=== PATIENT | male | born 1965 | race Caucasian/White ===

== ENCOUNTER 2016-11-27 05:52 | Inpatient (IN) | payer BC, MEDICAID, OTHER ==
[~2016-11-27] VITALS: Ht 177.8 cm; Wt 88.4 kg
[~2016-11-27 05:52] MED LIST: CITA20TA9 PO; QUET100T PO; QUET200T PO; QUET25TA PO; VITAD1000 PO
[2016-11-27 06:18] LABS: BASOPHILS # (AUTO) 0.08 K/uL (0.00-0.20); BASOPHILS % (AUTO) 0.8 % (0.0-2.0); EOSINOPHILS # (AUTO) 0.19 K/uL (0.00-0.70); EOSINOPHILS % (AUTO) 1.77 % (1.0-6.0); HEMATOCRIT 41.5 % (41-53); HEMOGLOBIN 13.8 g/dL (13.5-17.5); LYMPHOCYTES # (AUTO) 1.8 K/uL (1.0-4.8); LYMPHOCYTES % (AUTO) 16.6 % (22.0-44.0); MEAN CORPUSCULAR HEMOGLOBIN 30.6 pg (26.0-34.0); MEAN CORPUSCULAR HGB CONC 33.4 G/dL (31.0-37.0); MEAN CORPUSCULAR VOLUME 92 fL (80-100); MONOCYTES # (AUTO) 0.7 K/uL (0.1-1.0); MONOCYTES % (AUTO) 6.3 % (2.0-9.0); NEUTROPHILS # (AUTO) 7.9 K/uL (1.8-7.7); NEUTROPHILS % (AUTO) 74.5 % (40.0-70.0); PLATELET COUNT (AUTO) 452 K/uL (150-450); RED BLOOD CELL COUNT(AUTO) 4.52 MIL/uL (4.50-5.90); RED CELL DISTRIBUTION WIDTH 13.6 % (11.5-14.5); WHITE BLOOD COUNT (AUTO) 10.6 K/uL (4.5-11.0)
[2016-11-27 06:39] LABS: ANION GAP 11 mmol/L (8-16); CALCIUM, TOTAL 8.8 mg/dL (8.8-10.5); CARBON DIOXIDE 29 mmol/L (22-29); CHLORIDE 103 mmol/L (98-107); CREATININE 1.03 mg/dL (0.60-1.30); GLOMERULAR FILTR. RATE CALC > 60 mL/min (>60); POTASSIUM 3.5 mmol/L (3.5-5.1); SODIUM SERUM 143 mmol/L (136-145); UREA NITROGEN, BLOOD 10 mg/dL (7-18)
[2016-11-27 06:46] LABS: ALANINE AMINOTRANSFERASE 33 U/L (12-78); ALBUMIN 3.4 g/dL (3.4-5.0); ASPARTATE AMINOTRANSFERASE 25 U/L (15-37); BILIRUBIN,TOTAL 0.2 mg/dL (0.1-1.0)
[2016-11-27] MEDS ORDERED: HALOPERIDOL 5 MG TABLET PO PRN (08:30)
[2016-11-27] MEDS ORDERED: ZOLPIDEM TARTRATE 10 MG TABLET PO PRN (08:30)
[2016-11-27 10:29] VITALS: BP 134/94
[2016-11-27 10:51] VITALS: BP 134/94
[2016-11-27] MEDS: QUEtiapine FUMARATE 100 MG TABLET PO SCH (11:45)
[2016-11-27] MEDS: CITALOPRAM HYDROBROMIDE 20 MG TABLET PO SCH (11:46)
[2016-11-27] MEDS: LORazepam 2 MG TABLET PO PRN ×3 (11:49→20:58)
[2016-11-27 16:41] VITALS: BP 126/70
[2016-11-27] MEDS: QUEtiapine FUMARATE 200 MG TABLET PO SCH (20:58)
[2016-11-28 03:27] VITALS: BP 139/93
[2016-11-28] MEDS: IBUPROFEN 600 MG TABLET PO PRN ×4 (03:33→21:04)
[2016-11-28] MEDS: LORazepam 2 MG TABLET PO PRN ×4 (03:33→16:27)
[2016-11-28] MEDS: QUEtiapine FUMARATE 100 MG TABLET PO SCH (07:53)
[2016-11-28] MEDS: CITALOPRAM HYDROBROMIDE 20 MG TABLET PO SCH (07:53)
[2016-11-28 08:01] VITALS: BP 130/80
[2016-11-28] MEDS: NICOTINE 14 MG/24 HOUR PATCH TD SCH (08:30)
[2016-11-28 16:26] VITALS: BP 144/95
[2016-11-28] MEDS ORDERED: LOPERAMIDE HCL 2 MG CAPSULE PO PRN (16:45)
[2016-11-28] MEDS ORDERED: MAG HYDROX/AL HYDROX/SIMETH ES 30 ML SUSPENSION UDCUP PO PRN (16:45)
[2016-11-28] MEDS ORDERED: ONDANSETRON HCL 4 MG TABLET PO PRN (16:45)
[2016-11-28] MEDS ORDERED: CloNIDine HCL 0.1 MG TABLET PO PRN (16:45)
[2016-11-28] MEDS ORDERED: ALBUTEROL SULFATE HFA 90 MCG/PUFF 8 GM INHALER IH PRN (16:45)
[2016-11-28] MEDS ORDERED: BACITRACIN 28.4 GM OINTMENT TP PRN (16:45)
[2016-11-28] MEDS ORDERED: TraMADol HCL 50 MG TABLET PO PRN (16:45)
[2016-11-28] MEDS ORDERED: MAGNESIUM HYDROXIDE SUSPENSION 30 ML UDCUP PO PRN (16:45)
[2016-11-28] MEDS ORDERED: PETROLATUM,WHITE 71 GM JELLY TP PRN (16:45)
[2016-11-28] MEDS ORDERED: ACETAMINOPHEN 325 MG TABLET PO PRN (16:45)
[2016-11-28] MEDS ORDERED: BENZOCAINE/MENTHOL LOZENGE [8 LOZENGES/PACKET] MM PRN (16:45)
[2016-11-28] MEDS: QUEtiapine FUMARATE 200 MG TABLET PO SCH (21:01)
[2016-11-28 21:04] VITALS: BP 139/78
[2016-11-29] MEDS: LORazepam 2 MG TABLET PO PRN ×3 (03:51→14:03)
[2016-11-29] MEDS: IBUPROFEN 600 MG TABLET PO PRN ×2 (03:51→14:03)
[2016-11-29 03:55] VITALS: BP 134/100
[2016-11-29 06:30] VITALS: BP 145/94
[2016-11-29 09:00] VITALS: BP 151/98
[2016-11-29] MEDS ORDERED: CHOLECALCIFEROL (VIT D3) 1,000 UNITS TABLET PO SCH (09:00)
[2016-11-29] MEDS: CITALOPRAM HYDROBROMIDE 20 MG TABLET PO SCH (09:00)
[2016-11-29] MEDS: QUEtiapine FUMARATE 100 MG TABLET PO SCH (09:00)
[2016-11-29] MEDS ORDERED: OMEPRAZOLE 20 MG CAPSULE PO SCH (09:00)
[2016-11-29] MEDS: NICOTINE 14 MG/24 HOUR PATCH TD SCH (09:05)
[2016-11-29] MEDS ORDERED: OMEP20 PO (10:37)
[2016-11-29 14:00] VITALS: BP 130/78
== END 2016-11-29 16:30 | disposition home or self-care (01) | DRG 750 ==
LOC: EMS 05:52 → 3EI 09:53
PROVIDERS: ADMIT Psychiatry & Neurology Child & Adolescent Psychiatry; ATTEND Psychiatry & Neurology Child & Adolescent Psychiatry
DX: F25.1 Schizoaffective disorder, depressive type (principal); R45.851 Suicidal ideations; E55.9 Vitamin D deficiency, unspecified; I10 Essential (primary) hypertension; J44.9 Chronic obstructive pulmonary disease, unspecified; G89.29 Other chronic pain; M54.9 Dorsalgia, unspecified; M19.90 Unspecified osteoarthritis, unspecified site; G47.00 Insomnia, unspecified; K21.9 Gastro-esophageal reflux disease without esophagitis; F17.210 Nicotine dependence, cigarettes, uncomplicated; F12.90 Cannabis use, unspecified, uncomplicated; Z91.14 Patient's other noncompliance with medication regimen; Z88.8 Allergy status to other drugs, medicaments and biological substances; Z91.018 Allergy to other foods; Z79.899 Other long term (current) drug therapy; Z59.0 Homelessness; Z72.89 Other problems related to lifestyle; Z71.6 Tobacco abuse counseling; Z98.890 Other specified postprocedural states; Z91.5 Personal history of self-harm
CPT/HCPCS: 99285; G0480; J3535; Q0162

== ENCOUNTER 2016-12-23 13:29 | Inpatient (IN) | payer MEDICAID, OTHER ==
[~2016-12-23] VITALS: Ht 175.3 cm; Wt 85.0 kg
[~2016-12-23 13:29] MED LIST changes: +OMEP20 PO; -QUET25TA PO
[2016-12-23 13:56] LABS: BASOPHILS % (AUTO) 0.4 % (0.0-2.0); EOSINOPHILS % (AUTO) 0.1 % (1.0-6.0); HEMATOCRIT 44.4 % (41-53); HEMOGLOBIN 14.7 g/dL (13.5-17.5); LYMPHOCYTES # (AUTO) 1.3 K/uL (1.0-4.8); LYMPHOCYTES % (AUTO) 9.8 % (22.0-44.0); MEAN CORPUSCULAR HEMOGLOBIN 29.8 pg (26.0-34.0); MEAN CORPUSCULAR VOLUME 90 fL (80-100); MONOCYTES # (AUTO) 0.8 K/uL (0.1-1.0); NEUTROPHILS # (AUTO) 10.8 K/uL (1.8-7.7); NEUTROPHILS % (AUTO) 83.7 % (40.0-70.0); PLATELET COUNT (AUTO) 378 K/uL (150-450); RED BLOOD CELL COUNT(AUTO) 4.92 MIL/uL (4.50-5.90); WHITE BLOOD COUNT (AUTO) 12.9 K/uL (4.5-11.0)
[2016-12-23 14:04] LABS: ANION GAP 17 mmol/L (8-16); CALCIUM, TOTAL 8.9 mg/dL (8.8-10.5); CARBON DIOXIDE 22 mmol/L (22-29); CHLORIDE 100 mmol/L (98-107); CREATININE 1.03 mg/dL (0.60-1.30); GLOMERULAR FILTR. RATE CALC > 60 mL/min (>60); POTASSIUM 4.4 mmol/L (3.5-5.1); SODIUM SERUM 139 mmol/L (136-145); UREA NITROGEN, BLOOD 14 mg/dL (7-18)
[2016-12-23 14:10] LABS: ALANINE AMINOTRANSFERASE 57 U/L (12-78); ALBUMIN 4.1 g/dL (3.4-5.0); ASPARTATE AMINOTRANSFERASE 36 U/L (15-37); BILIRUBIN,TOTAL 1.2 mg/dL (0.1-1.0); TOTAL PROTEIN, SERUM 9.1 g/dL (6.4-8.2)
[2016-12-23] MEDS ORDERED: HALOPERIDOL 5 MG TABLET PO PRN ×2 (15:15→17:30)
[2016-12-23 18:18] VITALS: BP 124/89
[2016-12-23] MEDS ORDERED: ACETAMINOPHEN 325 MG TABLET PO PRN (20:00)
[2016-12-23] MEDS: LORazepam 2 MG TABLET PO PRN (20:25)
[2016-12-23 20:30] VITALS: BP 120/84
[2016-12-23] MEDS: TraMADol HCL 50 MG TABLET PO PRN (20:30)
[2016-12-23] MEDS: ZOLPIDEM TARTRATE 10 MG TABLET PO PRN (21:56)
[2016-12-23] MEDS: ALBUTEROL SULFATE HFA 90 MCG/PUFF 8 GM INHALER IH PRN (22:07)
[2016-12-24 01:04] VITALS: BP 107/80
[2016-12-24] MEDS: LORazepam 2 MG TABLET PO PRN ×4 (01:11→17:12)
[2016-12-24] MEDS: IBUPROFEN 600 MG TABLET PO PRN (05:37)
[2016-12-24] MEDS: ALBUTEROL SULFATE HFA 90 MCG/PUFF 8 GM INHALER IH PRN (05:38)
[2016-12-24 08:55] VITALS: BP 110/78
[2016-12-24] MEDS: NICOTINE 21 MG/24 HOUR PATCH TD SCH (09:00)
[2016-12-24] MEDS: OMEPRAZOLE 20 MG CAPSULE PO SCH (09:00)
[2016-12-24] MEDS: CHOLECALCIFEROL (VIT D3) 1,000 UNITS TABLET PO SCH (09:01)
[2016-12-24] MEDS: QUEtiapine FUMARATE 100 MG TABLET PO SCH (11:29)
[2016-12-24] MEDS: CITALOPRAM HYDROBROMIDE 20 MG TABLET PO SCH (11:29)
[2016-12-24 16:18] VITALS: BP 121/79
[2016-12-24] MEDS: TraMADol HCL 50 MG TABLET PO PRN (16:20)
[2016-12-24] MEDS: QUEtiapine FUMARATE 200 MG TABLET PO SCH (20:13)
[2016-12-24] MEDS: ZOLPIDEM TARTRATE 10 MG TABLET PO PRN (20:13)
[2016-12-25] MEDS: TraMADol HCL 50 MG TABLET PO PRN ×2 (00:20→17:13)
[2016-12-25 00:30] VITALS: BP 105/76
[2016-12-25] MEDS: IBUPROFEN 600 MG TABLET PO PRN ×2 (01:29→20:22)
[2016-12-25] MEDS: ALBUTEROL SULFATE HFA 90 MCG/PUFF 8 GM INHALER IH PRN ×2 (02:17→12:13)
[2016-12-25] MEDS: LORazepam 2 MG TABLET PO PRN ×4 (04:33→20:31)
[2016-12-25] MEDS: CHOLECALCIFEROL (VIT D3) 1,000 UNITS TABLET PO SCH (08:06)
[2016-12-25] MEDS: CITALOPRAM HYDROBROMIDE 20 MG TABLET PO SCH (08:06)
[2016-12-25] MEDS: NICOTINE 21 MG/24 HOUR PATCH TD SCH (08:06)
[2016-12-25] MEDS: OMEPRAZOLE 20 MG CAPSULE PO SCH (08:06)
[2016-12-25] MEDS: QUEtiapine FUMARATE 100 MG TABLET PO SCH (08:06)
[2016-12-25 08:37] VITALS: BP 115/93
[2016-12-25 11:08] VITALS: BP 110/74
[2016-12-25 16:09] VITALS: BP 118/82
[2016-12-25 18:15] VITALS: BP 119/78
[2016-12-25] MEDS: QUEtiapine FUMARATE 200 MG TABLET PO SCH (20:21)
[2016-12-25 20:22] VITALS: BP 123/73
[2016-12-25] MEDS: ZOLPIDEM TARTRATE 10 MG TABLET PO PRN (21:34)
[2016-12-26 01:57] VITALS: BP 120/83
[2016-12-26] MEDS: TraMADol HCL 50 MG TABLET PO PRN ×3 (01:57→16:06)
[2016-12-26] MEDS: CITALOPRAM HYDROBROMIDE 20 MG TABLET PO SCH (03:15)
[2016-12-26 04:31] VITALS: BP 104/74
[2016-12-26] MEDS: LORazepam 2 MG TABLET PO PRN ×4 (04:34→18:04)
[2016-12-26] MEDS: ALBUTEROL SULFATE HFA 90 MCG/PUFF 8 GM INHALER IH PRN ×2 (05:37→12:37)
[2016-12-26] MEDS: IBUPROFEN 600 MG TABLET PO PRN ×2 (05:59→12:41)
[2016-12-26 08:19] VITALS: BP 109/73
[2016-12-26] MEDS: CHOLECALCIFEROL (VIT D3) 1,000 UNITS TABLET PO SCH (08:52)
[2016-12-26] MEDS: NICOTINE 21 MG/24 HOUR PATCH TD SCH (08:52)
[2016-12-26] MEDS: QUEtiapine FUMARATE 100 MG TABLET PO SCH (08:53)
[2016-12-26] MEDS: OMEPRAZOLE 20 MG CAPSULE PO SCH (08:53)
[2016-12-26 16:03] VITALS: BP 133/89
[2016-12-26 16:04] VITALS: BP 133/89
[2016-12-26] MEDS: QUEtiapine FUMARATE 200 MG TABLET PO SCH (20:00)
[2016-12-26] MEDS: ZOLPIDEM TARTRATE 10 MG TABLET PO PRN (20:00)
[2016-12-27 00:29] VITALS: BP 136/86
[2016-12-27] MEDS: TraMADol HCL 50 MG TABLET PO PRN ×2 (00:38→10:03)
[2016-12-27] MEDS: LORazepam 2 MG TABLET PO PRN ×2 (05:41→10:55)
[2016-12-27] MEDS: IBUPROFEN 600 MG TABLET PO PRN (06:59)
[2016-12-27 08:19] VITALS: BP 106/60
[2016-12-27] MEDS: OMEPRAZOLE 20 MG CAPSULE PO SCH (08:25)
[2016-12-27] MEDS: CHOLECALCIFEROL (VIT D3) 1,000 UNITS TABLET PO SCH (08:25)
[2016-12-27] MEDS: CITALOPRAM HYDROBROMIDE 20 MG TABLET PO SCH (08:25)
[2016-12-27] MEDS: QUEtiapine FUMARATE 100 MG TABLET PO SCH (08:25)
[2016-12-27] MEDS: NICOTINE 21 MG/24 HOUR PATCH TD SCH (08:25)
[2016-12-27] MEDS: ALBUTEROL SULFATE HFA 90 MCG/PUFF 8 GM INHALER IH PRN (09:30)
[2016-12-27] MEDS ORDERED: LOPERAMIDE HCL 2 MG CAPSULE PO PRN (10:15)
== END 2016-12-27 13:35 | disposition home or self-care (01) | DRG 750 ==
LOC: EMS 13:31 → EEVIPCON 13:31 → B2S 17:09 → EMS 17:19 → B2S 18:00
PROVIDERS: ATTEND Psychiatry & Neurology Child & Adolescent Psychiatry
DX: F25.1 Schizoaffective disorder, depressive type (principal); R45.851 Suicidal ideations; E55.9 Vitamin D deficiency, unspecified; J44.9 Chronic obstructive pulmonary disease, unspecified; K21.9 Gastro-esophageal reflux disease without esophagitis; F31.9 Bipolar disorder, unspecified; M54.5 Low back pain; G47.00 Insomnia, unspecified; F17.210 Nicotine dependence, cigarettes, uncomplicated; F12.90 Cannabis use, unspecified, uncomplicated; F10.10 Alcohol abuse, uncomplicated; Z71.51 Drug abuse counseling and surveillance of drug abuser; Z88.8 Allergy status to other drugs, medicaments and biological substances; Z79.899 Other long term (current) drug therapy; Z59.0 Homelessness; Z71.41 Alcohol abuse counseling and surveillance of alcoholic; Z91.14 Patient's other noncompliance with medication regimen
CPT/HCPCS: 99285; G0480; J3535

== ENCOUNTER 2017-01-31 19:53 | Inpatient (IN) | payer MEDICAID, OTHER ==
[~2017-01-31] VITALS: Ht 177.8 cm; Wt 87.5 kg
[2017-01-31] MEDS ORDERED: HYDR-309 PO (20:08)
[2017-01-31] MEDS ORDERED: DIVA250T25 PO (20:08)
[2017-01-31 20:36] LABS: BASOPHILS % (AUTO) 0.8 % (0.0-2.0); EOSINOPHILS % (AUTO) 2.6 % (1.0-6.0); HEMATOCRIT 44.7 % (41-53); HEMOGLOBIN 14.8 g/dL (13.5-17.5); LYMPHOCYTES # (AUTO) 1.9 K/uL (1.0-4.8); LYMPHOCYTES % (AUTO) 25.4 % (22.0-44.0); MEAN CORPUSCULAR HEMOGLOBIN 30.2 pg (26.0-34.0); MEAN CORPUSCULAR HGB CONC 33.1 G/dL (31.0-37.0); MEAN CORPUSCULAR VOLUME 91 fL (80-100); MONOCYTES # (AUTO) 0.6 K/uL (0.1-1.0); MONOCYTES % (AUTO) 8.8 % (2.0-9.0); NEUTROPHILS # (AUTO) 4.6 K/uL (1.8-7.7); NEUTROPHILS % (AUTO) 62.4 % (40.0-70.0); PLATELET COUNT (AUTO) 318 K/uL (150-450); RED BLOOD CELL COUNT(AUTO) 4.91 MIL/uL (4.50-5.90); RED CELL DISTRIBUTION WIDTH 14.9 % (11.5-14.5); WHITE BLOOD COUNT (AUTO) 7.4 K/uL (4.5-11.0)
[2017-01-31 20:58] LABS: ANION GAP 12 mmol/L (8-16); CALCIUM, TOTAL 9.2 mg/dL (8.8-10.5); CARBON DIOXIDE 27 mmol/L (22-29); CHLORIDE 98 mmol/L (98-107); CREATININE 1.04 mg/dL (0.60-1.30); GLOMERULAR FILTR. RATE CALC > 60 mL/min (>60); POTASSIUM 3.9 mmol/L (3.5-5.1); SODIUM SERUM 137 mmol/L (136-145); UREA NITROGEN, BLOOD 17 mg/dL (7-18)
[2017-01-31 21:04] LABS: ALANINE AMINOTRANSFERASE 29 U/L (12-78); ASPARTATE AMINOTRANSFERASE 28 U/L (15-37); BILIRUBIN,TOTAL 0.9 mg/dL (0.1-1.0); TOTAL PROTEIN, SERUM 8.7 g/dL (6.4-8.2)
[2017-01-31 21:17] LABS: VALPROIC ACID < 3 mcg/mL (50-100)
[2017-02-01] MEDS: LORazepam 2 MG TABLET PO PRN ×3 (00:19→17:08)
[2017-02-01 01:16] VITALS: BP 127/60
[2017-02-01 02:37] LABS: APPEARANCE,URINE TURBID (CLEAR); GLUCOSE, URINE (UA) NEGATIVE (NEGATIVE); KETONES,URINE >=80 mg/dL (NEGATIVE); LEUKOCYTE ESTERASE ,URINE TRACE (NEGATIVE); OCCULT BLOOD,URINE NEGATIVE (NEGATIVE); PROTEIN,URINE POS 1+ (NEGATIVE)
[2017-02-01 02:41] LABS: ADD UA MICROSCOPIC YES
[2017-02-01 02:49] LABS: CALCIUM OXALATE CRYSTALS,UR Moderate /LPF (None Seen); SQUAMOUS EPITHELIAL CELL,UR Few /LPF (None Seen)
[2017-02-01 02:51] LABS: WBC,URINE 0-2 /HPF (0-5)
[2017-02-01 02:52] LABS: RBC,URINE 0-2 /HPF (0-2)
[2017-02-01] MEDS ORDERED: -PHARMACY VACCINE NOTE- MISC ONE ×2 (04:15)
[2017-02-01 09:56] VITALS: BP 116/80
[2017-02-01] MEDS: QUEtiapine FUMARATE 100 MG TABLET PO PRN ×2 (12:22→17:08)
[2017-02-01 16:00] VITALS: BP 107/74
[2017-02-01] MEDS: QUEtiapine FUMARATE 200 MG TABLET PO SCH (21:10)
[2017-02-01] MEDS ORDERED: BENZOCAINE/MENTHOL LOZENGE [8 LOZENGES/PACKET] MM PRN (21:15)
[2017-02-01] MEDS ORDERED: ONDANSETRON HCL 4 MG TABLET PO PRN (21:15)
[2017-02-01] MEDS ORDERED: PETROLATUM,WHITE 71 GM JELLY TP PRN (21:15)
[2017-02-01] MEDS ORDERED: LOPERAMIDE HCL 2 MG CAPSULE PO PRN (21:15)
[2017-02-01] MEDS ORDERED: BACITRACIN 28.4 GM OINTMENT TP PRN (21:15)
[2017-02-01] MEDS ORDERED: CloNIDine HCL 0.1 MG TABLET PO PRN (21:15)
[2017-02-01] MEDS ORDERED: MAGNESIUM HYDROXIDE SUSPENSION 30 ML UDCUP PO PRN (21:15)
[2017-02-01] MEDS ORDERED: MAG HYDROX/AL HYDROX/SIMETH ES 30 ML SUSPENSION UDCUP PO PRN (21:15)
[2017-02-02 08:20] VITALS: BP 137/80
[2017-02-02] MEDS: DOCUSATE SODIUM 100 MG CAPSULE PO SCH (08:21)
[2017-02-02] MEDS: NICOTINE 21 MG/24 HOUR PATCH TD SCH (08:21)
[2017-02-02] MEDS: IBUPROFEN 600 MG TABLET PO PRN ×2 (08:21→16:37)
[2017-02-02] MEDS: LORazepam 2 MG TABLET PO PRN ×3 (08:21→21:04)
[2017-02-02] MEDS: OMEPRAZOLE 20 MG CAPSULE PO SCH (08:21)
[2017-02-02] MEDS: FLUoxetine HCL 20 MG CAPSULE PO SCH (08:21)
[2017-02-02] MEDS: QUEtiapine FUMARATE 200 MG TABLET PO SCH ×2 (08:25→20:21)
[2017-02-02 09:25] VITALS: BP 128/79
[2017-02-02 16:33] VITALS: BP 140/79
[2017-02-03 01:10] VITALS: BP 116/80
[2017-02-03] MEDS: IBUPROFEN 600 MG TABLET PO PRN ×3 (01:12→16:50)
[2017-02-03] MEDS: LORazepam 2 MG TABLET PO PRN ×4 (01:12→16:50)
[2017-02-03] MEDS: ACETAMINOPHEN 325 MG TABLET PO PRN ×2 (04:56→12:24)
[2017-02-03 07:45] LABS: HEMATOCRIT 41.8 % (41-53); HEMOGLOBIN 13.6 g/dL (13.5-17.5); MEAN CORPUSCULAR HEMOGLOBIN 29.9 pg (26.0-34.0); MEAN CORPUSCULAR HGB CONC 32.5 G/dL (31.0-37.0); MEAN CORPUSCULAR VOLUME 92 fL (80-100); PLATELET COUNT (AUTO) 268 K/uL (150-450); RED BLOOD CELL COUNT(AUTO) 4.54 MIL/uL (4.50-5.90); RED CELL DISTRIBUTION WIDTH 14.8 % (11.5-14.5); WHITE BLOOD COUNT (AUTO) 4.5 K/uL (4.5-11.0)
[2017-02-03 08:11] LABS: ALANINE AMINOTRANSFERASE 23 U/L (12-78); ALBUMIN 3.3 g/dL (3.4-5.0); ANION GAP 7 mmol/L (8-16); ASPARTATE AMINOTRANSFERASE 19 U/L (15-37); BILIRUBIN,TOTAL 0.2 mg/dL (0.1-1.0); CALCIUM, TOTAL 8.7 mg/dL (8.8-10.5); CARBON DIOXIDE 28 mmol/L (22-29); CHLORIDE 105 mmol/L (98-107); CHOL/HDL RATIO 3.1 (4.2-7.3); CREATININE 0.97 mg/dL (0.60-1.30); GLOMERULAR FILTR. RATE CALC > 60 mL/min (>60); PHOSPHORUS 3.5 mg/dL (2.5-4.9); POTASSIUM 4.3 mmol/L (3.5-5.1); SODIUM SERUM 140 mmol/L (136-145); THYROID STIMULATING HORMONE 2.17 uIU/mL (0.36-3.74); TOTAL PROTEIN, SERUM 7.6 g/dL (6.4-8.2); UREA NITROGEN, BLOOD 15 mg/dL (7-18)
[2017-02-03 09:15] VITALS: BP 123/85
[2017-02-03] MEDS: DOCUSATE SODIUM 100 MG CAPSULE PO SCH (09:20)
[2017-02-03] MEDS: OMEPRAZOLE 20 MG CAPSULE PO SCH (09:20)
[2017-02-03] MEDS: FLUoxetine HCL 20 MG CAPSULE PO SCH (09:20)
[2017-02-03] MEDS: NICOTINE 21 MG/24 HOUR PATCH TD SCH (09:25)
[2017-02-03] MEDS: QUEtiapine FUMARATE 200 MG TABLET PO SCH ×2 (09:26→21:11)
[2017-02-03 10:04] LABS: BASOPHILS % (AUTO) 0.6 % (0.0-2.0); EOSINOPHILS % (AUTO) 4.6 % (1.0-6.0); LYMPHOCYTES # (AUTO) 1.5 K/uL (1.0-4.8); LYMPHOCYTES % (AUTO) 33.2 % (22.0-44.0); MONOCYTES # (AUTO) 0.5 K/uL (0.1-1.0); MONOCYTES % (AUTO) 11.4 % (2.0-9.0); NEUTROPHILS # (AUTO) 2.3 K/uL (1.8-7.7); NEUTROPHILS % (AUTO) 50.2 % (40.0-70.0)
[2017-02-03] MEDS: CHOLECALCIFEROL (VIT D3) 5,000 UNITS CAPSULE PO SCH (15:06)
[2017-02-03 16:50] VITALS: BP 135/91
[2017-02-04] MEDS: LORazepam 2 MG TABLET PO PRN ×3 (02:38→16:34)
[2017-02-04 02:55] VITALS: BP 114/89
[2017-02-04] MEDS: OMEPRAZOLE 20 MG CAPSULE PO SCH (09:26)
[2017-02-04] MEDS: DOCUSATE SODIUM 100 MG CAPSULE PO SCH (09:26)
[2017-02-04] MEDS: NICOTINE 21 MG/24 HOUR PATCH TD SCH (09:27)
[2017-02-04] MEDS: QUEtiapine FUMARATE 200 MG TABLET PO SCH ×2 (09:27→20:40)
[2017-02-04] MEDS: CHOLECALCIFEROL (VIT D3) 5,000 UNITS CAPSULE PO SCH (09:28)
[2017-02-04] MEDS: FLUoxetine HCL 20 MG CAPSULE PO SCH (09:29)
[2017-02-04 09:30] VITALS: BP 140/99
[2017-02-04] MEDS: IBUPROFEN 600 MG TABLET PO PRN (09:30)
[2017-02-04 10:30] VITALS: BP 134/89
[2017-02-04] MEDS ORDERED: CIPROFLOXACIN HCL 250 MG TABLET PO SCH (17:00)
[2017-02-04 19:01] VITALS: BP 116/82
[2017-02-05 02:20] VITALS: BP 104/86
[2017-02-05] MEDS: IBUPROFEN 600 MG TABLET PO PRN ×3 (02:22→16:40)
[2017-02-05] MEDS: ZOLPIDEM TARTRATE 10 MG TABLET PO PRN (02:22)
[2017-02-05] MEDS ORDERED: FLUoxetine HCL 20 MG CAPSULE PO SCH (09:00)
[2017-02-05 09:30] VITALS: BP 112/77
[2017-02-05] MEDS: DOCUSATE SODIUM 100 MG CAPSULE PO SCH (09:32)
[2017-02-05] MEDS: OMEPRAZOLE 20 MG CAPSULE PO SCH (09:32)
[2017-02-05] MEDS: QUEtiapine FUMARATE 200 MG TABLET PO SCH ×2 (09:32→21:42)
[2017-02-05] MEDS: CHOLECALCIFEROL (VIT D3) 5,000 UNITS CAPSULE PO SCH (09:33)
[2017-02-05] MEDS: LORazepam 2 MG TABLET PO PRN ×2 (09:36→16:40)
[2017-02-05] MEDS: NICOTINE 21 MG/24 HOUR PATCH TD SCH (09:38)
[2017-02-05 16:40] VITALS: BP 131/84
[2017-02-06 05:05] VITALS: BP 100/73
[2017-02-06] MEDS: IBUPROFEN 600 MG TABLET PO PRN ×2 (05:10→12:11)
[2017-02-06] MEDS: LORazepam 2 MG TABLET PO PRN ×3 (05:11→16:38)
[2017-02-06 08:57] VITALS: BP 114/80
[2017-02-06] MEDS: FLUoxetine HCL 20 MG CAPSULE PO SCH (09:48)
[2017-02-06] MEDS: QUEtiapine FUMARATE 200 MG TABLET PO SCH ×2 (09:48→20:13)
[2017-02-06] MEDS: NICOTINE 21 MG/24 HOUR PATCH TD SCH (09:48)
[2017-02-06] MEDS: CHOLECALCIFEROL (VIT D3) 5,000 UNITS CAPSULE PO SCH (09:48)
[2017-02-06] MEDS: OMEPRAZOLE 20 MG CAPSULE PO SCH (09:48)
[2017-02-06] MEDS: DOCUSATE SODIUM 100 MG CAPSULE PO SCH (09:48)
[2017-02-06] MEDS: ALBUTEROL SULFATE HFA 90 MCG/PUFF 8 GM INHALER IH PRN (16:40)
[2017-02-06] MEDS: ZOLPIDEM TARTRATE 10 MG TABLET PO PRN (21:56)
[2017-02-06 22:39] VITALS: BP 133/79
[2017-02-07] MEDS: LORazepam 2 MG TABLET PO PRN ×3 (02:00→17:19)
[2017-02-07 06:53] VITALS: BP 121/76
[2017-02-07] MEDS: QUEtiapine FUMARATE 200 MG TABLET PO SCH ×2 (08:17→20:28)
[2017-02-07] MEDS: FLUoxetine HCL 20 MG CAPSULE PO SCH (08:17)
[2017-02-07] MEDS: OMEPRAZOLE 20 MG CAPSULE PO SCH (08:17)
[2017-02-07] MEDS: DOCUSATE SODIUM 100 MG CAPSULE PO SCH (08:18)
[2017-02-07] MEDS: NICOTINE 21 MG/24 HOUR PATCH TD SCH (08:18)
[2017-02-07] MEDS: CHOLECALCIFEROL (VIT D3) 5,000 UNITS CAPSULE PO SCH (08:18)
[2017-02-07 09:00] VITALS: BP 132/92
[2017-02-07 14:24] VITALS: BP 103/77
[2017-02-07] MEDS: IBUPROFEN 600 MG TABLET PO PRN ×2 (14:24→20:28)
[2017-02-07 15:26] VITALS: BP 119/73
[2017-02-07 17:01] VITALS: BP 124/92
[2017-02-07 20:28] VITALS: BP 125/90
[2017-02-08] MEDS: LORazepam 2 MG TABLET PO PRN ×3 (04:11→18:32)
[2017-02-08] MEDS: IBUPROFEN 600 MG TABLET PO PRN ×2 (04:11→11:05)
[2017-02-08 04:12] VITALS: BP 120/80
[2017-02-08 08:00] VITALS: BP 119/70
[2017-02-08] MEDS: OMEPRAZOLE 20 MG CAPSULE PO SCH (08:32)
[2017-02-08] MEDS: FLUoxetine HCL 20 MG CAPSULE PO SCH (08:32)
[2017-02-08] MEDS: DOCUSATE SODIUM 100 MG CAPSULE PO SCH (08:32)
[2017-02-08] MEDS: QUEtiapine FUMARATE 200 MG TABLET PO SCH ×2 (08:33→20:38)
[2017-02-08] MEDS: CHOLECALCIFEROL (VIT D3) 5,000 UNITS CAPSULE PO SCH (08:33)
[2017-02-08] MEDS: NICOTINE 21 MG/24 HOUR PATCH TD SCH (08:33)
[2017-02-08 11:05] VITALS: BP 122/74
[2017-02-08] MEDS: ALBUTEROL SULFATE HFA 90 MCG/PUFF 8 GM INHALER IH PRN (11:06)
[2017-02-08] MEDS: ZOLPIDEM TARTRATE 10 MG TABLET PO PRN (21:23)
[2017-02-08 21:40] VITALS: BP 126/76
[2017-02-09 06:19] VITALS: BP 120/73
[2017-02-09] MEDS: IBUPROFEN 600 MG TABLET PO PRN ×3 (06:34→19:20)
[2017-02-09] MEDS: LORazepam 2 MG TABLET PO PRN ×3 (06:37→19:34)
[2017-02-09 08:15] VITALS: BP 134/84
[2017-02-09] MEDS: OMEPRAZOLE 20 MG CAPSULE PO SCH (09:45)
[2017-02-09] MEDS: FLUoxetine HCL 20 MG CAPSULE PO SCH (09:45)
[2017-02-09] MEDS: DOCUSATE SODIUM 100 MG CAPSULE PO SCH (09:45)
[2017-02-09] MEDS: QUEtiapine FUMARATE 200 MG TABLET PO SCH ×2 (09:46→21:14)
[2017-02-09] MEDS: CHOLECALCIFEROL (VIT D3) 5,000 UNITS CAPSULE PO SCH (09:46)
[2017-02-09] MEDS: NICOTINE 21 MG/24 HOUR PATCH TD SCH (09:49)
[2017-02-09] MEDS: ALBUTEROL SULFATE HFA 90 MCG/PUFF 8 GM INHALER IH PRN (09:51)
[2017-02-09 16:45] VITALS: BP 120/72
[2017-02-09 19:22] VITALS: BP 118/75
[2017-02-09] MEDS: ACETAMINOPHEN 325 MG TABLET PO PRN (21:15)
[2017-02-09 21:17] VITALS: BP 122/69
[2017-02-10] MEDS: LORazepam 2 MG TABLET PO PRN ×4 (00:57→19:32)
[2017-02-10 04:19] VITALS: BP 122/63
[2017-02-10] MEDS: ACETAMINOPHEN 325 MG TABLET PO PRN ×2 (04:19→17:44)
[2017-02-10 08:05] VITALS: BP 125/84
[2017-02-10] MEDS: IBUPROFEN 600 MG TABLET PO PRN ×2 (08:05→14:07)
[2017-02-10] MEDS: CHOLECALCIFEROL (VIT D3) 5,000 UNITS CAPSULE PO SCH (08:06)
[2017-02-10] MEDS: DOCUSATE SODIUM 100 MG CAPSULE PO SCH (08:06)
[2017-02-10] MEDS: QUEtiapine FUMARATE 200 MG TABLET PO SCH ×2 (08:06→20:11)
[2017-02-10] MEDS: OMEPRAZOLE 20 MG CAPSULE PO SCH (08:06)
[2017-02-10] MEDS: NICOTINE 21 MG/24 HOUR PATCH TD SCH (08:07)
[2017-02-10] MEDS: FLUoxetine HCL 20 MG CAPSULE PO SCH (08:07)
[2017-02-10 17:30] VITALS: BP 133/95
[2017-02-10] MEDS: ALBUTEROL SULFATE HFA 90 MCG/PUFF 8 GM INHALER IH PRN (17:45)
[2017-02-10 17:46] VITALS: BP 129/78
[2017-02-11] MEDS: ACETAMINOPHEN 325 MG TABLET PO PRN ×2 (03:46→10:47)
[2017-02-11 03:51] VITALS: BP 130/85
[2017-02-11 08:16] VITALS: BP 123/86
[2017-02-11] MEDS: QUEtiapine FUMARATE 200 MG TABLET PO SCH ×2 (08:32→20:46)
[2017-02-11] MEDS: CHOLECALCIFEROL (VIT D3) 5,000 UNITS CAPSULE PO SCH (08:33)
[2017-02-11] MEDS: FLUoxetine HCL 20 MG CAPSULE PO SCH (08:33)
[2017-02-11] MEDS: NICOTINE 21 MG/24 HOUR PATCH TD SCH (08:33)
[2017-02-11] MEDS: OMEPRAZOLE 20 MG CAPSULE PO SCH (08:33)
[2017-02-11] MEDS: LORazepam 2 MG TABLET PO PRN ×3 (08:33→19:00)
[2017-02-11] MEDS: DOCUSATE SODIUM 100 MG CAPSULE PO SCH (08:33)
[2017-02-11] MEDS: IBUPROFEN 600 MG TABLET PO PRN (14:49)
[2017-02-11 15:48] VITALS: BP 130/76
[2017-02-11 19:43] VITALS: BP 121/79
[2017-02-11] MEDS: ZOLPIDEM TARTRATE 10 MG TABLET PO PRN (21:51)
[2017-02-12] MEDS: ACETAMINOPHEN 325 MG TABLET PO PRN ×2 (04:16→12:52)
[2017-02-12] MEDS: IBUPROFEN 600 MG TABLET PO PRN ×2 (06:37→16:02)
[2017-02-12 09:00] VITALS: BP 135/80
[2017-02-12] MEDS: FLUoxetine HCL 20 MG CAPSULE PO SCH (09:00)
[2017-02-12] MEDS: OMEPRAZOLE 20 MG CAPSULE PO SCH (09:20)
[2017-02-12] MEDS: QUEtiapine FUMARATE 200 MG TABLET PO SCH ×2 (09:20→21:00)
[2017-02-12] MEDS: DOCUSATE SODIUM 100 MG CAPSULE PO SCH (09:21)
[2017-02-12] MEDS: CHOLECALCIFEROL (VIT D3) 5,000 UNITS CAPSULE PO SCH (09:21)
[2017-02-12] MEDS: NICOTINE 21 MG/24 HOUR PATCH TD SCH (09:22)
[2017-02-12] MEDS: LORazepam 2 MG TABLET PO PRN ×3 (11:20→20:06)
[2017-02-12 12:52] VITALS: BP 135/80
[2017-02-12 16:03] VITALS: BP 130/82
[2017-02-12] MEDS: QUEtiapine FUMARATE 100 MG TABLET PO PRN (17:16)
[2017-02-12] MEDS ORDERED: QUET300T2 PO (18:35)
[2017-02-12] MEDS ORDERED: QUET200T PO (18:35)
[2017-02-12] MEDS ORDERED: FLUO-191 PO (18:36)
[2017-02-12] MEDS ORDERED: DICLOFENAC SODIUM 1% 100 GM GEL [2GM] TP PRN (18:45)
[2017-02-12] MEDS ORDERED: DSS100 PO (18:46)
[2017-02-12] MEDS ORDERED: OMEP20 PO (18:47)
[2017-02-12] MEDS ORDERED: VITAD5000 PO (18:49)
== END 2017-02-12 23:30 | disposition home or self-care (01) | DRG 750 ==
LOC: EMS 19:55 → 3EI 22:34
PROVIDERS: ADMIT Psychiatry & Neurology Psychiatry; ATTEND Psychiatry & Neurology Psychiatry
DX: F25.1 Schizoaffective disorder, depressive type (principal); F15.20 Other stimulant dependence, uncomplicated; R45.851 Suicidal ideations; F12.90 Cannabis use, unspecified, uncomplicated; E55.9 Vitamin D deficiency, unspecified; J44.9 Chronic obstructive pulmonary disease, unspecified; K21.9 Gastro-esophageal reflux disease without esophagitis; G89.29 Other chronic pain; F17.210 Nicotine dependence, cigarettes, uncomplicated; K59.00 Constipation, unspecified; E58 Dietary calcium deficiency; N39.0 Urinary tract infection, site not specified; Z53.29 Procedure and treatment not carried out because of patient's decision for other reasons; R45.87 Impulsiveness; F41.9 Anxiety disorder, unspecified; Z91.19 Patient's noncompliance with other medical treatment and regimen; Z71.6 Tobacco abuse counseling; Z88.8 Allergy status to other drugs, medicaments and biological substances; Z59.0 Homelessness; Z72.89 Other problems related to lifestyle; Z71.41 Alcohol abuse counseling and surveillance of alcoholic
CPT/HCPCS: 82306; 83735; 84100; 84443; 87086; 99285; G0480; J3535; Q0162

== ENCOUNTER 2017-06-08 02:21 | Emergency (ER) | payer BC, OTHER ==
[~2017-06-08] VITALS: Ht 172.7 cm; Wt 90.9 kg
[~2017-06-08 02:21] MED LIST changes: -CITA20TA9 PO; +CLON1 PO; +DIAZ2 PO; +DSS100 PO; +FLUO-191 PO; +HYDR-309 PO; +LORA1TAB3 PO; -QUET100T PO; +QUET300T2 PO; -VITAD1000 PO; +VITAD5000 PO
[2017-06-08 02:35] VITALS: BP 145/85
[2017-06-08] MEDS ORDERED: KETOROLAC TROMETHAMINE 60 MG/2 ML VIAL IM ONE (03:00)
[2017-06-08] MEDS ORDERED: METHOCARBAMOL 500 MG TABLET PO ONE (03:00)
== END 2017-06-08 03:06 | disposition home or self-care (01) ==
LOC: EMS 02:23
DX: M54.5 Low back pain (principal); G89.29 Other chronic pain; J44.9 Chronic obstructive pulmonary disease, unspecified; F17.210 Nicotine dependence, cigarettes, uncomplicated; Z88.8 Allergy status to other drugs, medicaments and biological substances; Z91.018 Allergy to other foods
CPT/HCPCS: 96372; 99283; J1885

== ENCOUNTER 2017-06-09 00:13 | Emergency (ER) | payer OTHER ==
[~2017-06-09] VITALS: Ht 177.8 cm; Wt 86.0 kg
[2017-06-09 03:59] VITALS: BP 142/81
== END 2017-06-09 04:25 | disposition home or self-care (01) ==
LOC: EMS 00:14
DX: F20.9 Schizophrenia, unspecified (principal); F31.9 Bipolar disorder, unspecified; J44.9 Chronic obstructive pulmonary disease, unspecified; F17.210 Nicotine dependence, cigarettes, uncomplicated; Z88.8 Allergy status to other drugs, medicaments and biological substances
CPT/HCPCS: 99284

== ENCOUNTER 2017-06-10 19:56 | Emergency (ER) | payer OTHER ==
[~2017-06-10] VITALS: Ht 177.8 cm; Wt 90.9 kg
[2017-06-10] MEDS ORDERED: QUEtiapine FUMARATE 100 MG TABLET PO ONE (22:45)
[2017-06-10 22:52] VITALS: BP 128/75
== END 2017-06-10 22:57 | disposition home or self-care (01) ==
LOC: EMS 19:57
DX: F20.9 Schizophrenia, unspecified (principal); F31.9 Bipolar disorder, unspecified; J44.9 Chronic obstructive pulmonary disease, unspecified; F17.210 Nicotine dependence, cigarettes, uncomplicated; Z76.0 Encounter for issue of repeat prescription; Z88.8 Allergy status to other drugs, medicaments and biological substances
CPT/HCPCS: 99284

== ENCOUNTER 2017-06-12 01:31 | Emergency (ER) | payer BC, OTHER ==
[~2017-06-12] VITALS: Ht 175.3 cm; Wt 88.6 kg
[2017-06-12] MEDS ORDERED: QUET300T2 PO (01:40)
[2017-06-12] MEDS ORDERED: HYDR-309 PO (01:40)
[2017-06-12] MEDS ORDERED: IBUPROFEN 600 MG TABLET PO ONE (03:45)
[2017-06-12 04:39] VITALS: BP 120/70
[2017-06-12] MEDS ORDERED: IBUP-2070 PO (20:21)
[2017-06-12] MEDS ORDERED: LORA2TAB2 PO (20:21)
== END 2017-06-12 04:41 | disposition home or self-care (01) ==
LOC: EMS 01:33
DX: M54.5 Low back pain (principal); G89.29 Other chronic pain; F20.0 Paranoid schizophrenia; F31.9 Bipolar disorder, unspecified; J44.9 Chronic obstructive pulmonary disease, unspecified; F17.210 Nicotine dependence, cigarettes, uncomplicated
CPT/HCPCS: 99282; 99406

== ENCOUNTER 2017-06-12 20:03 | Emergency (ER) | payer BC, OTHER ==
[~2017-06-12] VITALS: Ht 175.3 cm; Wt 99.0 kg
[~2017-06-12 20:03] MED LIST changes: -CLON1 PO; -DIAZ2 PO; -DSS100 PO; -FLUO-191 PO; -LORA1TAB3 PO; -OMEP20 PO; -QUET200T PO; -VITAD5000 PO
[2017-06-12] MEDS ORDERED: LORA2TAB2 PO (20:21)
[2017-06-12] MEDS ORDERED: IBUP-2070 PO (20:21)
[2017-06-12 22:25] LABS: BASOPHILS % (AUTO) 0.9 % (0.0-2.0); EOSINOPHILS % (AUTO) 2.5 % (1.0-6.0); HEMATOCRIT 38.4 % (41-53); LYMPHOCYTES # (AUTO) 1.6 K/uL (1.0-4.8); LYMPHOCYTES % (AUTO) 25.1 % (22.0-44.0); MEAN CORPUSCULAR HEMOGLOBIN 31.2 pg (26.0-34.0); MEAN CORPUSCULAR HGB CONC 33.8 G/dL (31.0-37.0); MEAN CORPUSCULAR VOLUME 92 fL (80-100); MONOCYTES # (AUTO) 0.6 K/uL (0.1-1.0); NEUTROPHILS # (AUTO) 3.9 K/uL (1.8-7.7); NEUTROPHILS % (AUTO) 61.5 % (40.0-70.0); PLATELET COUNT (AUTO) 235 K/uL (150-450); RED BLOOD CELL COUNT(AUTO) 4.16 MIL/uL (4.50-5.90); RED CELL DISTRIBUTION WIDTH 15.8 % (11.5-14.5); WHITE BLOOD COUNT (AUTO) 6.3 K/uL (4.5-11.0)
[2017-06-12] MEDS ORDERED: QUEtiapine FUMARATE 100 MG TABLET PO ONE (22:30)
[2017-06-12 22:35] LABS: ANION GAP 7 mmol/L (8-16); CALCIUM, TOTAL 8.3 mg/dL (8.8-10.5); CARBON DIOXIDE 28 mmol/L (22-29); CHLORIDE 104 mmol/L (98-107); CREATININE 1.08 mg/dL (0.60-1.30); GLOMERULAR FILTR. RATE CALC > 60 mL/min (>60); POTASSIUM 4.2 mmol/L (3.5-5.1); SODIUM SERUM 139 mmol/L (136-145); UREA NITROGEN, BLOOD 15 mg/dL (7-18)
[2017-06-12 22:42] LABS: ALANINE AMINOTRANSFERASE 37 U/L (12-78); ALBUMIN 3.5 g/dL (3.4-5.0); ASPARTATE AMINOTRANSFERASE 26 U/L (15-37); BILIRUBIN,TOTAL 0.4 mg/dL (0.1-1.0); TOTAL PROTEIN, SERUM 7.2 g/dL (6.4-8.2)
[2017-06-12 22:57] VITALS: BP 109/72
== END 2017-06-12 23:40 | disposition home or self-care (01) ==
LOC: EMS 20:05
DX: F25.9 Schizoaffective disorder, unspecified (principal); F31.9 Bipolar disorder, unspecified; J44.9 Chronic obstructive pulmonary disease, unspecified; F17.210 Nicotine dependence, cigarettes, uncomplicated; Z88.8 Allergy status to other drugs, medicaments and biological substances; Z91.018 Allergy to other foods
CPT/HCPCS: 36415; 80053; 85025; 99284; G0480

== ENCOUNTER 2017-06-13 15:48 | Emergency (ER) | payer OTHER ==
[~2017-06-13] VITALS: Ht 177.8 cm; Wt 90.9 kg
[~2017-06-13 15:48] MED LIST changes: +IBUP-2070 PO; +LORA2TAB2 PO
[2017-06-13 16:58] VITALS: BP 128/76
[2017-06-13] MEDS ORDERED: IBUPROFEN 600 MG TABLET PO ONE (17:45)
[2017-06-13] MEDS ORDERED: LIDOCAINE HCL 5% TRANSDERMAL PATCH TD ONE (17:45)
== END 2017-06-13 17:53 | disposition home or self-care (01) ==
LOC: EMS 15:49
DX: M54.9 Dorsalgia, unspecified (principal); G89.29 Other chronic pain; J44.9 Chronic obstructive pulmonary disease, unspecified; F17.210 Nicotine dependence, cigarettes, uncomplicated
CPT/HCPCS: 99283